=== PATIENT | female | born 1965 | race African-American/Black ===

== ENCOUNTER 2020-01-27 13:37 | Outpatient (CLI) | payer OTHER ==
[~2020-01-27] VITALS: Ht 167.6 cm; Wt 102.5 kg
[2020-01-27 14:07] VITALS: BP 124/87
--- NOTE | 2020-01-27 16:45 | Consultation ---
DATE OF CONSULTATION: 01/27/2020 CONSULTING PHYSICIAN: Arthur Bruner MD. CHIEF COMPLAINT: Constipation and chronic GERD. PAST MEDICAL HISTORY: 1. Gallstones. 2. Hypertension. 3. Diabetes. 4. Neuropathy. PAST SURGICAL HISTORY: Cholecystectomy and procedure for endometriosis. MEDICATIONS: Please see medication reconciliation list. FAMILY HISTORY: Noncontributory. SOCIAL HISTORY: The patient denies any tobacco, alcohol, or drug abuse. ALLERGIES: No known allergies. REVIEW OF SYSTEMS: Positive for GERD and constipation. PHYSICAL EXAMINATION: VITAL SIGNS: Temperature 98, blood pressure 124/87, pulse 102. HEENT: Normocephalic and atraumatic. Sclerae are anicteric. NECK: Supple. No evidence of obvious lymphadenopathy. CARDIOVASCULAR: Regular rate and rhythm. Plus S1-S2. LUNGS: Clear to auscultation bilaterally. ABDOMEN: Soft, nontender. No rebound. No guarding. No peritoneal sign. EXTREMITIES: No cyanosis. No clubbing. No edema. ASSESSMENT AND PLAN: A 54-year-old female with severe constipation. Currently, the patient is taking Colace and MiraLAX and has to use enemas [id number] to be able to have a bowel movement. She stated this has been going on for about a year or two. She never had a colonoscopy before. She also has severe chronic GERD. Recommendation will be given that the patient is using all those laxatives [id number] now without any improvement, we are going to give her a trial of the Trulance. The patient was given sample and prescription for it. The patient also needs to be scheduled for endoscopy and colonoscopy. We will do when the authorization is obtained. Arthur Bruner M.D. DR: RAMIN JOB#: [id number] CC:
[2020-01-28] MEDS ORDERED: PAMELOR25 MG ORAL (09:12)
[2020-01-28] MEDS ORDERED: POTASSIUM CHLO20 ME3 PO (09:12)
[2020-01-28] MEDS ORDERED: LOSARTAN POTASS50 MG ORAL (09:12)
[2020-01-28] MEDS ORDERED: GABAPENTIN400 MG ORAL (09:12)
[2020-01-28] MEDS ORDERED: GABAPENTIN600 MG ORAL (09:12)
[2020-01-28] MEDS ORDERED: METOPROLOL SUCC50 MG ORAL (09:12)
[2020-01-28] MEDS ORDERED: METFORMIN HCL500 M1 ORAL (09:12)
[2020-01-28] MEDS ORDERED: HYDROCHLOROTHIA50 MG ORAL (09:12)
[2020-01-28] MEDS ORDERED: AMLODIPINE-BEN1 EAC1 ORAL (09:12)
[2020-01-28] MEDS ORDERED: SYNTHROID100 MCG ORAL (09:12)
[2020-01-28] MEDS ORDERED: PHENTERMINE HCL15 MG PO (09:12)
[2020-01-28] MEDS ORDERED: INVOKANA300 MG PO (09:12)
[2020-01-28] MEDS ORDERED: FENOFIBRATE160 MG ORAL (09:14)
== END 2020-01-27 15:37 | disposition home or self-care (01) ==
LOC: PAN 13:37
DX: K59.00 Constipation, unspecified (principal); K21.9 Gastro-esophageal reflux disease without esophagitis; I10 Essential (primary) hypertension; E11.40 Type 2 diabetes mellitus with diabetic neuropathy, unspecified; Z90.49 Acquired absence of other specified parts of digestive tract
CPT/HCPCS: G0463